=== PATIENT | female | born 1985 | race Caucasian/White ===

== ENCOUNTER 2023-07-30 06:33 | Outpatient (REF) | payer OTHER, SELFPAY ==
--- NOTE | ~2023-07-30 | XR_ITS ---
EXAMINATION: XR ANKLE, LEFT CLINICAL INFORMATION: Pain, ankle and joints of unspecified foot. COMPARISON: None available. TECHNIQUE: AP, lateral, and mortise views of the left ankle. FINDINGS: Moderate to large plantar calcaneal spur. Bone mineralization is normal. Ankle mortise is preserved. XR/XR ankle LT min 3V IMPRESSION: Moderate to large plantar calcaneal spur.
== END 2023-07-30 06:34 | disposition home or self-care (01) ==
LOC: HO.HOSX 06:33
PROVIDERS: Visit Provider Orthopaedic Surgery
DX: M25.572 Pain in left ankle and joints of left foot (principal)
CPT/HCPCS: 73610

== ENCOUNTER 2023-07-30 09:56 | Outpatient (AMB) | payer OTHER, SELFPAY ==
[2023-07-30 10:06] VITALS: BMI 41.0
--- NOTE | 2023-07-30 10:06 | MHC.OFFVIS ---
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 Patient reports noticed a bump on her achilles roughly 6 weeks ago that is painful and villagomez with palpitation. She expresses she has days when it hurts more than others causing the pain and burning to radiate to the posterior aspect of her lower leg. When she lifts her heel during ambulation she expresses pain immediately but severity varies. She denies any recent injury, numbness, and tingling. 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 Patient reports noticed a bump on her achilles roughly 6 weeks ago that is painful and villagomez with palpitation. She expresses she has days when it hurts more than others causing the pain and burning to radiate to the posterior aspect of her lower leg. When she lifts her heel during ambulation she expresses pain immediately but severity varies. 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 [facility] Social History Alcohol intake: current Patient Tobacco Use Status: Never used Tobacco Current occupational status: employed Current occupation: Senior Estimator Physical Exam Vital Signs: BMI result Body Mass Index 41.0 Const General: cooperative, healthy appearing, no acute distress, well developed and alert HEENT Head: Yes normal to inspection, Yes normocephalic and Yes atraumatic Mouth: moist mucous membranes Eyes General: appearance normal, both eyes and all related structures EOM: EOMs intact bilaterally Chest Other: no audible wheezing. Resp Other: No audible wheezing Effort & Inspection: normal respiratory effort Back/Spine/Pelvis Cervical Spine: normal cervical lordosis Skin General skin exam: no rashes or lesions noted Neuro General: no focal motor deficits Extrem Other: Positive retrocalcaneal squeeze test with palpable tendinosis of distal Achilles. 5/5 plantar flexion strength. Psych Appearance: grossly normal and well kempt Mental Status: mental status grossly normal Speech and movement: Normal speech and movement present Affect: normal affect Attitude: cooperative Results Reviewed Results Reviewed: Normal radiographs left ankle Assessment & Plan Assessment & Plan (1) Left Achilles tendinitis: Code(s): M76.62 - Achilles tendinitis, left leg Category: Medical Plan: Physical therapy, heel lifts and home exercise. Shoe wear if it is irritating her can be modified. We reviewed this. She can follow up in 3 months as needed. Physical therapy prescription was written. Orders: Orders XR ankle LT min 3V Today M25.579 - Pain in unspecified ankle and joints of unspecified foot PT Evaluation and Treatment Today M76.62 - Achilles tendinitis, left leg Coding Level of Care Code New Pt Level 3 (15462) Diagnoses Left Achilles tendinitis M76.62
== END 2023-07-30 10:26 | disposition home or self-care (01) ==
PROVIDERS: PCP Nurse Practitioner; Visit Provider Orthopaedic Surgery
DX: M76.62 Achilles tendinitis, left leg (principal)
CPT/HCPCS: 99203